=== PATIENT | male | born 1975 | race Caucasian/White ===

== ENCOUNTER 2020-09-20 13:48 | Emergency (ER) | payer SELFPAY | END 2020-09-20 16:55 | disposition left against medical advice (07) | LOC: ER1 13:48 | DX: Z53.21 Procedure and treatment not carried out due to patient leaving prior to being seen by health care provider (principal) | CPT/HCPCS: 93005 ==

== ENCOUNTER 2021-04-19 10:45 | Emergency (ER) | payer BC ==
[2021-04-19 11:54] LABS: HEMOGLOBIN 15.1 gm/dl (14.0-17.5); RED BLOOD COUNT 5.04 M/UL (4.20-5.50); WHITE BLOOD COUNT 7.8 K/UL (4.5-11.0)
[2021-04-19 12:19] LABS: BUN/CREATININE RATIO 15 (0-10)
[2021-04-19] MEDS ORDERED: CATAPRES 0.1MG0.1 MG PO (12:55)
[2021-04-19] MEDS ORDERED: FLONASE 0.05% N16 GM (12:55)
[2021-04-19] MEDS ORDERED: NAPROXEN500 MG PO (12:55)
== END 2021-04-19 13:25 | disposition home or self-care (01) ==
LOC: ER1 10:45
PROVIDERS: Physician Assistant Medical
DX: H66.92 Otitis media, unspecified, left ear (principal); I10 Essential (primary) hypertension; E78.5 Hyperlipidemia, unspecified; K21.9 Gastro-esophageal reflux disease without esophagitis
CPT/HCPCS: 80053; 81001; 82550; 82553; 83874; 84484; 85025; 93005; 96374; 96375; 99283; J0696; J1885